=== PATIENT | female | born 1940 | race Caucasian/White ===

== ENCOUNTER 2016-09-17 09:13 | Emergency (ER) | payer MEDICARE ==
[2016-09-17] MEDS ORDERED: BABY ASPIRIN 81 MG CHEW PO ONE (09:16)
[2016-09-17] MEDS ORDERED: PLAVIX 75 MG Tablet PO ONE (09:16)
[2016-09-17] MEDS ORDERED: PLAVIX 75 MG Tablet ONE (09:22)
[2016-09-17] MEDS ORDERED: Sodium Chloride 0.9% 1000 ML 1,000 ML ONE (09:22)
[2016-09-17] MEDS ORDERED: BABY ASPIRIN 81 MG CHEW ONE (09:22)
[2016-09-17] MEDS ORDERED: Sodium Chloride 0.9% 1000 ML 1,000 ML IV SCH (09:30)
[2016-09-17 09:36] LABS: BASOPHIL % 0.3 % (0.0-0.4); Eosinophil % 2.1 % (0.00-5.0); Granulocytes % 64.8 % (36.0-66.0); Lymphocytes % 26.1 % (24.0-44.0); Mean Cell Volume 81.5 fl (78-100); Mean Corpuscular Hemoglobin 26.3 pg (26-32); Mean Platelet Volume 10.8 fl (6-9.5); Monocytes % 6.7 % (0.0-12.0); Platelet Count 269 K/mm3 (150-450); Red Cell Distribution Width 14.8 % (11.5-14.0); White Blood Count 7.9 K/mm3 (4.0-10.5)
[2016-09-17 09:45] LABS: INR 1.03 (0.8-3.0); PROTIME 11.5 SECONDS (9.95-12.35)
[2016-09-17] MEDS ORDERED: ENOXAPARIN SODIUM SQ ONE ×2 (09:48→09:51)
[2016-09-17 09:50] LABS: ALBUMIN 3.8 g/dL (3.4-5.0); ALKALINE PHOSPHATASE 60 U/L (46-116); ANION GAP 17.1 MEQ/L (5-15); BILIRUBIN,TOTAL 0.6 mg/dL (0.2-1.0); BLOOD UREA NITROGEN 10 mg/dL (9-20); CHLORIDE 101 mEq/L (98-107); Carbon Dioxide 27.4 mEq/L (21-32); Glucose 162 MG/DL (70-110); Potassium 3.9 mEq/L (3.5-5.1); SGOT/AST 43 U/L (15-37); SGPT/ALT 32 U/L (12-78); SODIUM 142 mEq/L (136-145); Total Protein 8.3 gm/dL (6.4-8.2)
[2016-09-17 09:52] LABS: TROPONIN < 0.017 ng/ml (0.000-0.056)
[2016-09-17] MEDS ORDERED: LOPRESSOR 5 MG/5 ML INJECTION IV ONE ×2 (09:59→10:03)
--- NOTE | 2016-09-17 09:59 | ERPHSYRPT ---
- History of Present Illness Time Seen by Provider: 09/17/16 09:54 Source: patient, family Exam Limitations: no limitations Patient Subjective Stated Complaint: patient began having headache, attempted to take a couple tylenol. called daughter and was slurring in speech sister came over an brought to ER Triage Nursing Assessment: patient puking with headache, hand family medicine resident equal smile symetrical, speech unclear, unable to fully articulate what she is trying to speak. Physician History: patient began having headache, attempted to take a couple tylenol. called daughter and was slurring in speech sister came over an brought to ER 76-year-old female with significant history of hypertension, hyperlipidemia, started having headache since yesterday. She took some Tylenol. 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 Her daughter felt that her mother is not making any sense on telephone, so she called her aunt and told her to bring her to the emergency room. Patient walked into the emergency room but she has a hard time arranging the words and she was complaining of some visual disturbance on her right side. She was able to answer all the questions including her name, her date of , but she has some slow response.. Timing/Duration: today Severity: mild Character of Deficits: altered sensation, impaired speech, vision problems Deficits: no difficulties Baseline/Normal Cognition: alert oriented x 3 Current Cognition: alert oriented x 3 Baseline Gait: walks w/o assistance Associated Symptoms: confusion Allergies/Adverse Reactions: erythromycin base [Erythromycin Base] Allergy (Intermediate, Verified 05/15/13 11:46) heart races amitriptyline Adverse Reaction (Mild, Verified 05/15/13 11:46) ezetimibe [From Vytorin 10-10] Adverse Reaction (Mild, Verified 05/15/13 11:46) simvastatin [From Vytorin 10-10] Adverse Reaction (Mild, Verified 05/15/13 11:46 ) Home Medications: Amlodipine Besylate 5 mg [Norvasc 5 mg] 5 mg PO DAILY 05/13/13 [History] Aspirin 81 gm Chew [Baby Aspirin 81 mg Chew] 81 mg PO DAILY 05/13/13 [ History] Calcium Carbonate/Vitamin D3 [Calcium 600-Vit D3 200 Tablet] 1 each PO DAILY [History] Celecoxib [Celebrex] 200 mg PO DAILY 05/13/13 [History] Clotrimazole/Betamethasone Dip [Clotrimazole-Betamethasone Crm] 45 gm TP BID [History] Esomeprazole Magnesium [Nexium] 40 mg PO DAILY 05/13/13 [History] Estradiol [Vagifem] 10 mcg VG UD PRN 05/13/13 [History] Fish Oil/Dha/Epa [Fish Oil 1,200 mg Fish Oil] 1 each PO DAILY 05/13/13 [History] Hydrocodone Bit/Acetaminophen [Hydrocodon-Acetaminophen 5-500] 1 each PO QID PRN 05/13/13 [History] Hydrocortisone Acetate [Anucort-Hc] 25 mg RC UD PRN 05/13/13 [History] Metformin HCl 500 mg [Glucophage 500 MG] 500 mg PO QID 05/13/13 [History] Multivitamin [Daily Multivitamin] 1 each PO DAILY 05/13/13 [History] Raloxifene HCl [Evista] 0 mg PO DAILY 05/13/13 [History] Rosuvastatin Calcium [Crestor] 10 mg PO DAILY 05/13/13 [History] Vitamin E Acetate [Vitamin E] 600 unit PO DAILY 05/13/13 [History] Hx Tetanus, Diphtheria Vaccination/Date Given: Yes Hx Influenza Vaccination/Date Given: Yes Hx Pneumococcal Vaccination/Date Given: Yes Immunizations Up to Date: Yes - Review of Systems Constitutional: No Fever, No Chills Eyes: No Symptoms Ears, Nose, & Throat: No Symptoms Respiratory: No Cough, No Dyspnea Cardiac: No Chest Pain, No Edema, No Syncope Abdominal/Gastrointestinal: No Abdominal Pain, No Nausea, No Vomiting, No Diarrhea Genitourinary Symptoms: No Dysuria Musculoskeletal: No Back Pain, No Neck Pain Skin: No Rash Neurological: Headache, Speech Changes, No Dizziness, No Focal Weakness, No Sensory Changes Psychological: No Symptoms Endocrine: No Symptoms All Other Systems: Reviewed and Negative - Past Medical History Pertinent Past Medical History: Yes Neurological History: No Pertinent History ENT History: No Pertinent History Cardiac History: No Pertinent History, Hypertension Respiratory History: No Pertinent History Endocrine Medical History: Diabetes Type II Musculoskeletal History: Arthritis GI Medical History: GERD History: Other Psycho-Social History: No Pertinent History Female Reproductive Disorders: Other Other Medical History: uti,diarrhea - Past Surgical History Past Surgical History: Yes Neuro Surgical History: No Pertinent History Cardiac: No Pertinent History Respiratory: No Pertinent History Gastrointestinal: Appendectomy, Cholecystectomy, Hemorrhoidectomy Female Surgical History: Hysterectomy, Tubal Ligation Other Surgical History: Bladder tuck, then strap removed. - Social History Smoking Status: Never smoker Exposure to second hand smoke: No Drug Use: none Patient Lives Alone: Yes - Female History Hx Now: No - Nursing Vital Signs Nursing Vital Signs: Initial Vital Signs Temperature 99.2 F Temperature Source Rectal Pulse Rate 99 Respiratory Rate 24 Blood Pressure [Right Arm] 189/87 Pain Intensity 7 - Abhijit Coma Scale Best Eye Response ([place]): (4) open spontaneously Best Verbal Response (Abhijit): (5) oriented Best Motor Response ([place]): (6) obeys commands Abhijit Total: 15 - Physical Exam General Appearance: no apparent distress, alert Eye Exam: right eye: vision changes, bilateral eye: PERRL, EOMI Ears, Nose, Throat Exam: normal ENT inspection, moist mucous membranes Neck Exam: normal inspection, non-tender, supple Respiratory: normal breath sounds, lungs clear, airway intact, No respiratory distress Cardiovascular: regular rate/rhythm, No edema Gastrointestinal: soft, No tenderness, No distention Back Exam: normal inspection Extremity Exam: normal inspection, No pedal edema Mental Status: alert, oriented x 3 physician practice manager Exam: tongue midline Coordination/Gait: normal finger to nose, normal gait Skin Exam: normal color, warm, dry, No rash SpO2: 95 Oxygen Delivery: Room Air - Course Nursing assessment & vital signs reviewed: Yes EKG Interpreted by Me: Sinus Rhythm - CT Exams Head CT Interpretation: Tele-radiologist Report (negative, no bleed ) Ordered Tests: Active Orders 24 hr Category Date Time Status Command And Control Officer STAT Care 09/17/16 09:52 Active EKG-ER Only STAT Care 09/17/16 09:16 Active IV Insertion STAT Care 09/17/16 09:16 Active Pulse Oximetry (ED) STAT Care 09/17/16 09:53 Active cath [Cath for Specimen-Straight] STAT Care 09/17/16 09:52 Active HEAD WITHOUT CONTRAST [CT] Stat Exams 09/17/16 09:16 Ordered CBC W DIFF Stat Lab 09/17/16 09:16 Ordered CMP Stat Lab 09/17/16 09:16 Ordered PROTIME WITH INR Stat Lab 09/17/16 09:16 Ordered TROPONIN Stat Lab 09/17/16 09:16 Ordered UA W/RFX UR CULTURE Stat Lab 09/17/16 09:51 Ordered Medication Summary Generic Name Dose Route Start Last Admin Trade Name Lisa PRN Reason Stop Dose Admin Enoxaparin Sodium 40 mg 09/17/16 09:51 Enoxaparin Sodium SQ 09/17/16 09:52 STAT ONE Sodium Chloride 1,000 mls @ 50 mls/hr 09/17/16 09:30 09/17/16 09:50 Sodium Chloride 0.9% 1000 Ml IV 10/17/16 09:29 50 mls/hr .Q20H CRISTIAN Administration Discontinued Medications Generic Name Dose Route Start Last Admin Trade Name Lisa PRN Reason Stop Dose Admin Aspirin 81 mg 09/17/16 09:16 09/17/16 09:50 Baby Aspirin 81 Mg Chew PO 09/17/16 09:17 81 mg STAT ONE Administration Aspirin Confirm 09/17/16 09:22 Baby Aspirin 81 Mg Chew Administered 09/17/16 09:23 Dose 81 mg .ROUTE .STK-MED ONE Clopidogrel Bisulfate 75 mg 09/17/16 09:16 09/17/16 09:49 Plavix 75 Mg Tablet PO 09/17/16 09:17 75 mg STAT ONE Administration Clopidogrel Bisulfate Confirm 09/17/16 09:22 Plavix 75 Mg Tablet Administered 09/17/16 09:23 Dose 75 mg .ROUTE .STK-MED ONE Enoxaparin Sodium Confirm 09/17/16 09:48 Enoxaparin Sodium Administered 09/17/16 09:49 Dose 80 mg SQ .STK-MED ONE Sodium Chloride Confirm 09/17/16 09:22 Sodium Chloride 0.9% 1000 Ml Administered 09/17/16 09:23 Dose 1,000 mls @ ud .ROUTE .STK-MED ONE Lab/Rad Data: Laboratory Result Diagrams 09/17/16 09:20 09/17/16 09:20 Laboratory Results 09/17/16 09/17/16 09/17/16 Range/Units 09:20 09:20 09:20 WBC 7.9 (4.0-10.5) K/mm3 RBC 4.60 (4.1-5.4) M/mm3 Hgb 12.1 (12.0-16.0) gm/dl Hct 37.5 (35-47) % MCV 81.5 (78-100) fl MCH 26.3 (26-32) pg MCHC 32.3 (32-36) g/dl RDW 14.8 H (11.5-14.0) % Plt Count 269 (150-450) K/mm3 MPV 10.8 H (6-9.5) fl Gran % 64.8 (36.0-66.0) % Lymphocytes % 26.1 (24.0-44.0) % Monocytes % 6.7 (0.0-12.0) % Eosinophils % 2.1 (0.00-5.0) % Basophils % 0.3 (0.0-0.4) % Basophils # 0.02 (0-0.4) INR 1.03 (0.8-3.0) Sodium 142 (136-145) mEq/L Potassium 3.9 (3.5-5.1) mEq/L Chloride 101 (98-107) mEq/L Carbon Dioxide 27.4 (21-32) mEq/L Anion Gap 17.1 H (5-15) MEQ/L BUN 10 (9-20) mg/dL Creatinine 0.75 (0.55-1.30) mg/dl Estimated GFR > 60 ML/MIN Glucose 162 H (70-110) MG/DL Calcium 9.6 (8.5-10.1) mg/dL Total Bilirubin 0.6 (0.2-1.0) mg/dL AST 43 H (15-37) U/L ALT 32 (12-78) U/L Alkaline Phosphatase 60 (46-116) U/L Troponin I < 0.017 (0.000-0.056) ng/ml Serum Total Protein 8.3 H (6.4-8.2) gm/dL Albumin 3.8 (3.4-5.0) g/dL - Progress Progress: re-examined (patient is more alert, able to answer question.) Discussed with : Kiara (hospitalist service at [facility] [place]) Will see patient in: other (at [facility]) Counseled pt/family regarding: diagnosis, need for follow-up - Departure Time of Disposition: 10:00 Departure Disposition: Transfer Clinical Impression: Transient ischemic attack (TIA) Qualifiers: Transient cerebral ischemia type: unspecified Qualified Code(s): G45.9 - Transient cerebral ischemic attack, unspecified Condition: Fair Critical Care Time: Yes Critical Care Time(excluding separately billable procedures): 30-74 minutes Referrals: SERENA BAR [Primary Care Provider] -
[2016-09-17 10:02] VITALS: O2SAT 94
[2016-09-17 10:02] LABS: COMPLETE URINE MICROSCOPIC? YES; Collection Type CATH
[2016-09-17 10:05] LABS: ADD URINE CULTURE? YES (NO); Bacteria RARE /HPF (NEGATIVE); Epithelial Cells RARE /HPF (FEW)
[2016-09-17 11:44] VITALS: BP 178/79; PULSE 76
--- NOTE | 2016-09-17 20:58 | XRAY ---
Indication: Left-sided head pain. Confusion and slurred speech. Multiple contiguous axial images obtained through the head without contrast. Comparison: None Age-appropriate global atrophy and minimal periventricular degenerative micro-ischemia. No acute intracranial hemorrhage, abnormal extra-axial fluid collection, or mass effect. Fourth ventricle is midline without hydrocephalus. Bony calvarium intact. Visualized paranasal sinuses and mastoid air cells are pneumatized and clear. Impression: Nonacute senile brain. Comment: Preliminary interpretation was made by [facility]. No discrepancy. CTDI 66.12
== END 2016-09-17 11:35 | disposition short-term general hospital (02) ==
LOC: ED 09:13
DX: G45.9 Transient cerebral ischemic attack, unspecified (principal); I10 Essential (primary) hypertension; E78.5 Hyperlipidemia, unspecified; E11.9 Type 2 diabetes mellitus without complications; Z79.84 Long term (current) use of oral hypoglycemic drugs
CPT/HCPCS: 93041; 96372; 96374; 99285; 36000; 96360; 93005; 81000 ×2; 85610; 36415; 85025; 80053; 84484; 87086; 70450; P9612; J1650

== ENCOUNTER 2024-06-14 18:17 | Emergency (ER) | payer MEDICARE ==
[2024-06-14 18:26] VITALS: TEMP 98.7
--- NOTE | 2024-06-14 18:47 | ERPHSYRPT ---
- History of Present Illness Time Seen by Provider: 06/14/24 18:28 Source: patient Exam Limitations: no limitations Patient Subjective Stated Complaint: Pt fell in gravel while trying to go up an incline and landed on her right shoulder, ri knee, and right elbow Triage Nursing Assessment: Pt brought to the ER by family, hypertensive, rates pain as 10/10, pulses normal, skin n/w/d, abrasion to right knee, unable to move right shoulder without extreme pain, denies LOC or hitting head, denies N&V Physician History: About 30 minutes ago pt fell on gravel trying to get on an incline outside of [place] with resultant pain in her right shoulder and abrasions to her right elbow and right knee; denies LOC, chest pain, shortness of air, headache. Pt states she does not want x-rays of her right knee or right elbow, only her right shoulder. Allergies/Adverse Reactions: erythromycin base [Erythromycin Base] Allergy (Intermediate, Verified 06/14/24 18:25) heart races amitriptyline Adverse Reaction (Mild, Verified 06/14/24 18:25) ezetimibe [From Vytorin 10-10] Adverse Reaction (Mild, Verified 06/14/24 18:25) simvastatin [From Vytorin 10-10] Adverse Reaction (Mild, Verified 06/14/24 18: 25) Home Medications: Amlodipine Besylate 5 mg [Norvasc 5 mg] 5 mg PO DAILY 05/13/13 [History] Aspirin 81 gm Chew [Baby Aspirin 81 mg Chew] 81 mg PO DAILY 05/13/13 [History] Calcium Carbonate/Vitamin D3 [Calcium 600-Vit D3 200 Tablet] 1 each PO DAILY 05/13/13 [History] Celecoxib [Celebrex] 200 mg PO DAILY 05/13/13 [History] Clotrimazole/Betamethasone Dip [Clotrimazole-Betamethasone Crm] 45 gm TP BID 05/13/13 [History] Esomeprazole Magnesium [Nexium] 40 mg PO DAILY 05/13/13 [History] Fish Oil/Dha/Epa [Fish Oil 1,200 mg Fish Oil] 1 each PO DAILY 05/13/13 [History] Hydrocodone Bit/Acetaminophen [Hydrocodon-Acetaminophen 5-500] 1 each PO QID PRN 05/13/13 [History] Hydrocortisone Acetate [Anucort-Hc] 25 mg RC UD PRN 05/13/13 [History] Metformin HCl 500 mg [Glucophage 500 MG] 500 mg PO QID 05/13/13 [History] Multivitamin [Daily Multivitamin] 1 each PO DAILY 05/13/13 [History] Raloxifene HCl [Evista] 0 mg PO DAILY 05/13/13 [History] Rosuvastatin Calcium [Crestor] 10 mg PO DAILY 05/13/13 [History] Vitamin E Acetate [Vitamin E] 600 unit PO DAILY 05/13/13 [History] estradioL [Vagifem] 10 mcg VG UD PRN 05/13/13 [History] Hx Tetanus, Diphtheria Vaccination/Date Given: Yes Hx Influenza Vaccination/Date Given: Yes Hx Pneumococcal Vaccination/Date Given: Yes Travel Risk - International Travel Have you traveled outside of the country in past 3 weeks: No - Emerging Infectious Disease Are you exhibiting symptoms associated with any current EIDs: No - Review of Systems Respiratory: No Dyspnea Cardiac: No Chest Pain Abdominal/Gastrointestinal: No Abdominal Pain, No Vomiting Musculoskeletal: Joint Pain (right shoulder) Skin: Other (superficial abrasion to right knee and right shoulder) Neurological: No Headache - Past Medical History Pertinent Past Medical History: Yes Neurological History: Migraines ENT History: No Pertinent History Cardiac History: Hypertension Respiratory History: No Pertinent History Endocrine Medical History: Diabetes Type II Musculoskeletal History: Osteoarthritis GI Medical History: GERD History: Other Psycho-Social History: No Pertinent History Female Reproductive Disorders: Other Other Medical History: TIA in August 2016, Back surgery - Past Surgical History Past Surgical History: Yes Neuro Surgical History: No Pertinent History Cardiac: No Pertinent History Respiratory: No Pertinent History Gastrointestinal: Appendectomy, Cholecystectomy, Hemorrhoidectomy Female Surgical History: Hysterectomy, Tubal Ligation Other Surgical History: Bladder tuck, then strap removed. - Social History Smoking Status: Never smoker Exposure to second hand smoke: No Drug Use: none Patient Lives Alone: Yes - Social Determinants of Health Will the patient participate in the screening: Yes Do you worry about a steady place to live?: No Do you have any problems with any of the following?: No known problems In the past 12 months,have you had to go without utilities?: No Transportation Issues: No Has anyone in your support network made you feel unsafe?: No Have you or anyone in your house had to go without enough: No - Nursing Vital Signs Nursing Vital Signs: Initial Vital Signs Blood Pressure 201/81 06/14/24 18:17 O2 Sat by Pulse Oximetry 96 06/14/24 18:17 Pain Scale Pain Intensity 8 - [place] Coma Score Best Eye Response ([place]): (4) open spontaneously Best Verbal Response ([place]): (5) oriented Best Motor Response (Abhijit): (6) obeys commands [place] Total: 15 - Physical Exam General Appearance: alert Head Injury: no evidence of injury Eye Exam: PERRL/EOMI ENT Exam: airway nml, hearing grossly normal, No clear fluid (ears), No clear fluid (nose) Neck Exam: trachea midline Respiratory/Chest Exam: normal breath sounds Cardiovascular Exam: normal heart sounds Gastrointestinal Exam: normal bowel sounds Back Exam: No vertebral tenderness Extremity Exam: other (mild tenderness of right shoulder and pain with movement; right hand has good sensation & rom.) Neurologic Exam: alert, cooperative Skin Exam: abrasion (superficial small abrasion to right elbow & right knee. Good rom of left upper and both lower extremities.) SpO2 Interpretation: normal SpO2: 97 O2 Delivery: Room Air - Course Nursing assessment & vital signs reviewed: Yes - Radiology Exams Right Shoulder X-ray Interpretation: Interpreted by me (fx right humeral head) Ordered Tests: Active Orders 24 hr Category Date Time Status POCT Glucose Check STAT Care 06/14/24 19:55 Active Sling Application STAT Care 06/14/24 18:53 Active SHOULDER Stat Exams 06/14/24 18:53 Taken POCT GLUCOSE Stat Lab 06/14/24 19:59 Completed Medication Summary Discontinued Medications Generic Name Dose Route Start Last Admin Trade Name Lisa PRN Reason Stop Dose Admin Hydrocodone Bitart/Acetaminophen 2 tab 06/14/24 18:53 06/14/24 18:56 Hydrocodone/Apap 5/325 1 Tab Tablet PO 06/14/24 18:54 2 tab STAT ONE Administration Hydrocodone Bitart/Acetaminophen Confirm 06/14/24 18:55 Hydrocodone/Apap 5/325 1 Tab Tablet Administered 06/14/24 18:56 Dose 2 tab .ROUTE .STK-MED ONE Lab/Rad Data: Laboratory Results 06/14/24 Range/Units 19:59 POC Glucometer 197 H (74 to 106) mg/dL - Progress Progress: unchanged Progress Note: 06/14/24 20:38 I consulted INSPECT. Will see patient in: other (Spoke with Dr. Kenney(Orthopedic surgeon that was requested by pt) who stated pt may be discharged in a right arm sling, given an Rx for pain medication and follow up in the [facility] in [place] on Sunday06/16/24 at 8 AM.) Counseled pt/family regarding: diagnosis, need for follow-up, rad results Medical Desision Making - Diagnostic Testing Diagnostic test were ordered, analyzed, and reviewed by me: Yes Radiological Interpretation: Interpreted by me - Departure Departure Disposition: Home Clinical Impression: Fracture of humeral head, right, closed, Abrasions to right elbow & right knee Condition: Stable Critical Care Time: No Referrals: RUTHANN MADERA MD [Primary Care Provider] - Follow up/PCP as directed Instructions: Shoulder Fracture (DC) Additional Instructions: Follow up with Dr. Kenney in 2 days. Wear right arm sling. Prescriptions: Oxycodone HCl 5 mg PO Q6HPRN PRN #20 tablet MDD 20 mg PRN Reason: Pain
[2024-06-14] MEDS ORDERED: NORCO 5/325 MG ONE (18:55)
[2024-06-14] MEDS: NORCO 5/325 MG PO ONE (18:56)
[2024-06-14 20:25] VITALS: O2SAT 97
[2024-06-14] MEDS ORDERED: TORAdol 30 mg Injection ONE (20:45)
[2024-06-14] MEDS: TORAdol 30 mg Injection IM ONE (20:46)
[2024-06-14] MEDS: PERCOCET TABLET 5/325MG PO STA (20:51)
[2024-06-14] MEDS ORDERED: PERCOCET TABLET 5/325MG ONE (20:51)
--- NOTE | 2024-06-14 20:53 | XRAY ---
CLINICAL HISTORY: pain COMPARISON: None TECHNIQUE: X-ray of right shoulder, AP/external and internal rotation and lateral. FINDINGS: Comminuted fracture of the proximal humerus involving the head and neck, with overlapping of fragments. There is inferior subluxation of the humeral head. Suspicious fracture of the glenoid fossa. Mild osteoarthritic changes of the acromioclavicular joint. Normal bone density seen. Small ovoid opacities in the right hemithorax could represent pulmonary nodules. IMPRESSION: 1. Comminuted fracture of the proximal humerus involving the head and neck, with overlapping of fragments. 2. Inferior subluxation of the humeral head. 3. Suspicious fracture of the glenoid fossa. 4. Mild osteoarthritic changes of the AC joint. DISCLAIMER:A subtle bone abnormality or fracture may not be readily apparent on x-rays, thus clinical correlation and further imaging including follow up CT, MRI, or follow up x-rays are advised as needed Electronically Signed by: Luisana Kenny MD. (06/14/2024 20:49:09 EDT)
[2024-06-14 21:02] VITALS: BP 178/59; PULSE 78; RESP 20
== END 2024-06-14 21:00 | disposition home or self-care (01) ==
LOC: ED 18:17
DX: S42.291A Other displaced fracture of upper end of right humerus, initial encounter for closed fracture (principal); S50.311A Abrasion of right elbow, initial encounter; S80.211A Abrasion, right knee, initial encounter; W10.2XXA Fall (on)(from) incline, initial encounter; M25.511 Pain in right shoulder; I10 Essential (primary) hypertension; E11.9 Type 2 diabetes mellitus without complications; Z79.84 Long term (current) use of oral hypoglycemic drugs; Z79.891 Long term (current) use of opiate analgesic; Z79.899 Other long term (current) drug therapy
CPT/HCPCS: 73030; 82947; 96372; 99284; J1885; A9270-GY